=== PATIENT | male | born 1975 | race Caucasian/White ===

== ENCOUNTER 2017-08-22 06:42 | Emergency (ER) | payer BC ==
[2017-08-22] MEDS ORDERED: Aspirin 81 MG Tab.Chew PO ONE (07:00)
[2017-08-22] MEDS ORDERED: Sodium Chloride 0.9% 10 ML Syringe FLUSH PRN (07:00)
[2017-08-22] MEDS ORDERED: Alum Hydroxide/Mag Hydroxide 15 ML, Lidocaine 2% 15 ML PO ONE ×2 (08:19)
[2017-08-22] MEDS ORDERED: Pantoprazole 40 MG Tab.CR PO ONE (11:05)
--- NOTE | 2017-08-22 13:09 | EDM.PDOC ---
ED HPI GENERAL MEDICAL PROBLEM - General Chief Complaint: Chest Pain Stated Complaint: FAST HEART RATE Time Seen by Provider: 08/22/17 07:20 Source of Information: Reports: Patient History Limitations: Reports: No Limitations - History of Present Illness INITIAL COMMENTS - FREE TEXT/NARRATIVE: Patient is a 42 year old man with GERD and Heartburn. The pain was worse this AM at 05:30 when he awoke and he felt more bloated and the pain was radiating to the left side of his chest, so he came in for evaluation. No exertional component to the pain. No fever or chills. Some nausea but no vomiting. No diaphoresis but mild shortness of breath. No other complaints. Onset: Gradual Onset Date: 12/06/16 Onset Time: 06:00 Duration: Chronic, Waxing/Waning Location: Reports: Chest (Heartburn pain on protonix but seems to not be enough at this time.), Abdomen Quality: Reports: Burning, Pressure, Same as Previous Episode Improves with: Reports: Medication Worsens with: Reports: None Context: Reports: Other (History of GERD) Associated Symptoms: Reports: No Other Symptoms Treatments [employer]: Reports: Other Medication(s) (Protonix.) left chest Pain Score (Numeric/FACES): 2 - Related Data Allergies Allergy/AdvReac Type Severity Reaction Status Date / Time No Known Allergies Allergy Verified 08/22/17 07:10 Home Meds: Home Meds Amitriptyline [Elavil] 50 mg PO BEDTIME 08/22/17 [History] Metoprolol Succinate [Toprol XL] 25 mg PO DAILY 08/22/17 [History] Pantoprazole Sodium [Protonix] 40 mg PO BEDTIME 08/22/17 [History] Past Medical History Cardiovascular History: Reports: Hypertension Gastrointestinal History: Reports: Gastritis Psychiatric History: Reports: Anxiety - Past Surgical History GI Surgical History: Reports: Cholecystectomy Social & Family History - Family History Family Medical History: Unobtainable - Caffeine Use Caffeine Use: Reports: None - Recreational Drug Use Recreational Drug Use: No ED ROS GENERAL - Review of Systems Review Of Systems: See Below Constitutional: Reports: No Symptoms HEENT: Reports: No Symptoms Respiratory: Reports: No Symptoms Cardiovascular: Reports: No Symptoms Endocrine: Reports: No Symptoms GI/Abdominal: Reports: No Symptoms : Reports: No Symptoms Musculoskeletal: Reports: No Symptoms Skin: Reports: No Symptoms Neurological: Reports: No Symptoms Psychiatric: Reports: No Symptoms Hematologic/Lymphatic: Reports: No Symptoms Immunologic: Reports: No Symptoms ED EXAM, GENERAL - Physical Exam Exam: See Below Exam Limited By: No Limitations General Appearance: Alert, WD/WN, No Apparent Distress Eye Exam: Bilateral Eye: EOMI, Normal Fundi, Normal Inspection, PERRL Ears: Normal External Exam, Normal Canal, Hearing Grossly Normal, Normal TMs Ear Exam: Bilateral Ear: Auricle Normal, Canal Normal, TM normal Nose: Normal Inspection, Normal Mucosa, No Blood Throat/Mouth: Normal Inspection, Normal Lips, Normal Teeth, Normal Gums, Normal Oropharynx, Normal Voice, No Airway Compromise Head: Atraumatic, Normocephalic Neck: Normal Inspection, Supple, Non-Tender, Full Range of Motion Respiratory/Chest: No Respiratory Distress, Lungs Clear, Normal Breath Sounds, No Accessory Muscle Use, Chest Non-Tender Cardiovascular: Normal Peripheral Pulses, Regular Rate, Rhythm, No Edema, No Gallop, No JVD, No Murmur, No Rub GI/Abdominal: Normal Bowel Sounds, Soft, Non-Tender, No Organomegaly, No Distention, No Abnormal Bruit, No Mass Back Exam: Normal Inspection, Full Range of Motion, NT Extremities: Normal Inspection, Normal Range of Motion, Non-Tender, Normal Capillary Refill, No Pedal Edema Neurological: Alert, Oriented, CN II-XII Intact, Normal Cognition, Normal Gait, Normal Reflexes, No Motor/Sensory Deficits Psychiatric: Normal Affect, Normal Mood Skin Exam: Warm, Dry, Intact, Normal Color, No Rash Lymphatic: No Adenopathy EKG INTERPRETATION EKG Date: 08/22/17 Rhythm: NSR [place]: Normal P-Wave: Present QRS: Normal ST-T: Normal QT: Normal Comparison: No Change Course - Vital Signs Text/Narrative:: Patient was pain free after he had Zofran, fluids, a GI cocktail and Protonix. He will follow up with PCP in next week for possible referal to [facility]. Increase Protonix to 40 mg po bid. Recheck here if symptons or problems. Last Recorded V/S: Last Vital Signs Temp 36.3 C 08/22/17 12:45 Pulse 75 08/22/17 12:45 Resp 14 08/22/17 12:45 BP 128/82 08/22/17 12:45 Pulse Ox 100 08/22/17 12:45 - Orders/Labs/Meds Orders: Active Orders 24 hr Category Date Time Status CXR [Chest 1V Frontal] [CR] Stat Exams 08/22/17 06:59 Taken Sodium Chloride 0.9% [Saline Flush] Med 08/22/17 07:00 Active 10 ml FLUSH ASDIRECTED PRN Saline Lock Insert [OM.PC] Routine Oth 08/22/17 07:00 Ordered EKG 12 Lead [EK] Routine Ther 08/22/17 06:59 Ordered EKG 12 Lead [EK] Routine Ther 08/22/17 11:48 Ordered Medication Orders Sodium Chloride (Saline Flush) 10 ml FLUSH ASDIRECTED PRN PRN Reason: Keep Vein Open Last Admin: 08/22/17 07:00 Dose: 10 ml Labs: Laboratory Tests 08/22/17 08/22/17 08/22/17 Range/Units 07:10 07:10 07:10 WBC 3.5 L (4.5-12.0) X10-3/uL RBC 4.64 (4.30-5.75) x10(6)uL Hgb 14.8 (11.5-15.5) g/dL Hct 43.0 (30.0-51.3) % MCV 92.7 (80-96) fL MCH 32.0 (27.7-33.6) pg MCHC 34.5 (32.2-35.4) g/dL RDW 12.4 (11.5-15.5) % Plt Count 268 (125-369) X10(3)uL MPV 7.3 L (7.4-10.4) fL Neut % (Auto) 53.9 (46-82) % Lymph % (Auto) 33.5 (13-37) % [place] % (Auto) 8.6 (4-12) % Eos % (Auto) 3 (1.0-5.0) % Baso % (Auto) 1 (0-2) % Neut # (Auto) 1.9 (1.6-8.3) # Lymph # (Auto) 1.2 (0.6-5.0) # [place] # (Auto) 0.3 (0.0-1.3) # Eos # (Auto) 0.1 (0.0-0.8) # Baso # (Auto) 0.0 (0.0-0.2) # Sodium 139 (135-145) mmol/L Potassium 3.9 (3.5-5.3) mmol/L Chloride 104 (100-110) mmol/L Carbon Dioxide 26 (21-32) mmol/L BUN 14 (7-18) mg/dL Creatinine 0.8 (0.70-1.30) mg/dL Est Cr Clr Drug Dosing 126.74 mL/min Estimated GFR (MDRD) > 60 (>60) BUN/Creatinine Ratio 17.5 (9-20) Glucose 131 H (80-116) mg/dL Calcium 8.7 (8.6-10.2) mg/dL Total Bilirubin 0.4 (0.1-1.3) mg/dL AST 22 (5-25) IU/L ALT 34 (12-36) U/L Alkaline Phosphatase 79 (56-112) IU/L Troponin I < 0.017 L (<0.017-0.056) ng/mL Total Protein 7.1 (6.0-8.0) g/dL Albumin 3.9 (3.5-5.2) g/dL Globulin 3.2 g/dL Albumin/Globulin Ratio 1.2 //17 Range/Units 12:00 WBC (4.5-12.0) X10-3/uL RBC (4.30-5.75) x10(6)uL Hgb (11.5-15.5) g/dL Hct (30.0-51.3) % MCV (80-96) fL MCH (27.7-33.6) pg MCHC (32.2-35.4) g/dL RDW (11.5-15.5) % Plt Count (125-369) X10(3)uL MPV (7.4-10.4) fL Neut % (Auto) (46-82) % Lymph % (Auto) (13-37) % [place] % (Auto) (4-12) % Eos % (Auto) (1.0-5.0) % Baso % (Auto) (0-2) % Neut # (Auto) (1.6-8.3) # Lymph # (Auto) (0.6-5.0) # [place] # (Auto) (0.0-1.3) # Eos # (Auto) (0.0-0.8) # Baso # (Auto) (0.0-0.2) # Sodium (135-145) mmol/L Potassium (3.5-5.3) mmol/L Chloride (100-110) mmol/L Carbon Dioxide (21-32) mmol/L BUN (7-18) mg/dL Creatinine (0.70-1.30) mg/dL Est Cr Clr Drug Dosing mL/min Estimated GFR (MDRD) (>60) BUN/Creatinine Ratio (9-20) Glucose (80-116) mg/dL Calcium (8.6-10.2) mg/dL Total Bilirubin (0.1-1.3) mg/dL AST (5-25) IU/L ALT (12-36) U/L Alkaline Phosphatase (56-112) IU/L Troponin I < 0.017 L (<0.017-0.056) ng/mL Total Protein (6.0-8.0) g/dL Albumin (3.5-5.2) g/dL Globulin g/dL Albumin/Globulin Ratio Meds: Medications Generic Name Dose Route Start Last Admin Trade Name Freq PRN Reason Stop Dose Admin Sodium Chloride 10 ml 08/22/17 07:00 08/22/17 07:00 Saline Flush FLUSH 10 ml ASDIRECTED PRN Administration Keep Vein Open Discontinued Medications Generic Name Dose Route Start Last Admin Trade Name Freq PRN Reason Stop Dose Admin Aspirin 324 mg 08/22/17 07:00 08/22/17 07:08 Aspirin PO 08/22/17 07:01 324 mg ONETIME ONE Administration Al Hydroxide/Mg Hydroxide 15 0 ml 08/22/17 08:19 08/22/17 08:41 ml/ Lidocaine HCl 15 ml PO 08/22/17 08:20 15 ml ONETIME ONE Administration Pantoprazole Sodium 40 mg 08/23/17 06:00 Protonix PO 0600 [place] Pantoprazole Sodium 40 mg 08/22/17 11:05 08/22/17 11:13 Protonix PO 08/22/17 11:06 40 mg 1105 ONE Administration Departure - Departure Time of Disposition: 13:15 Disposition: Admitted As Inpatient 68 Condition: Good Clinical Impression: GERD with esophagitis, Chronic heartburn Referrals: Xuan Toledo [employer] [Primary Care Provider] - Forms: ED Department Discharge Additional Instructions: See primary care provider as necessary. Return to ED if symptoms gets worst. - My Orders Last 24 Hours: My Active Orders 08/22/17 06:59 CXR [Chest 1V Frontal] [CR] Stat EKG 12 Lead [EK] Routine 08/22/17 07:00 Sodium Chloride 0.9% [Saline Flush] 10 ml FLUSH ASDIRECTED PRN Saline Lock Insert [OM.PC] Routine 08/22/17 11:48 EKG 12 Lead [EK] Routine - Assessment/Plan Last 24 Hours: My Active Orders 08/22/17 06:59 CXR [Chest 1V Frontal] [CR] Stat EKG 12 Lead [EK] Routine 08/22/17 07:00 Sodium Chloride 0.9% [Saline Flush] 10 ml FLUSH ASDIRECTED PRN Saline Lock Insert [OM.PC] Routine 08/22/17 11:48 EKG 12 Lead [EK] Routine
[2017-08-23] MEDS ORDERED: Pantoprazole 40 MG Tab.CR PO SCH (06:00)
--- NOTE | 2017-08-24 16:10 | CR ---
INDICATION: Chest pain. CHEST: An AP portable upright view of the chest 08/22/2017 was compared with and revealed stable normal heart size and shape. Mediastinum unremarkable, with no active infiltrate or effusion. Overlying EKG leads are noted. IMPRESSION: Stable chest. No acute process. MTDD
== END 2017-08-22 13:20 | disposition home or self-care (01) ==
LOC: FB.ED 06:42
DX: K21.0 Gastro-esophageal reflux disease with esophagitis (principal); I10 Essential (primary) hypertension; F41.9 Anxiety disorder, unspecified; Z79.899 Other long term (current) drug therapy
CPT/HCPCS: 36415; 71010; 80053; 84484; 85025; 93005; 99285; A9270; J7050

== ENCOUNTER 2018-10-30 21:02 | Emergency (ER) | payer BC ==
--- NOTE | 2018-10-30 22:34 | ER ---
DATE SEEN: 10/30/2018 REASON FOR VISIT: Chest pain. HISTORY OF PRESENT ILLNESS: This is a 43-year-old male complaining of left- sided chest pain that came on tonight, intermittent, going to the neck, and associated with some numbness of the arm. He admits to being under a lot of pressure recently. He also has hypertension, that is poorly controlled. He took two of his metoprolol tonight because he realized his blood pressure was high. PAST MEDICAL HISTORY: GERD, hypertension. SOCIAL HISTORY: He quit smoking few years ago. He drinks occasionally. ALLERGIES: None. PHYSICAL EXAMINATION: VITAL SIGNS: Blood pressure is 150/90. He is afebrile, pulse 88, temperature is 98 degrees. ENT: Normal. NECK: Supple. CHEST: Clear. CARDIOVASCULAR: Mental status, flat affect. Answers questions well. LABORATORY DATA: Labs were negative. EKG was none. DIAGNOSTIC IMPRESSION: 1. Atypical chest pain. 2. Uncontrolled hypertension. PLAN: Follow up with Dr. Wilkerson on Thursday. Return to the ED with any worsening symptoms. /[id number] CASEY/ZANE
== END 2018-10-30 22:25 | disposition home or self-care (01) ==
LOC: FB.ED 21:02
DX: R07.89 Other chest pain (principal); I10 Essential (primary) hypertension; K21.9 Gastro-esophageal reflux disease without esophagitis; Z87.891 Personal history of nicotine dependence
CPT/HCPCS: 36415; 80048; 84484; 85025; 85379; 93005; 99285